=== PATIENT | male | born 1955 | race Caucasian/White ===

== ENCOUNTER → 2017-03-06 | Outpatient (CLI) | payer OTHER ==
[~2017-03-06] MED LIST: NO MEDICATIONS
== END | disposition home or self-care (01) ==
LOC: RAD 17:41
PROVIDERS: ATTEND Neurological Surgery
DX: Z01.818 Encounter for other preprocedural examination (principal); M51.26 Other intervertebral disc displacement, lumbar region; M48.04 Spinal stenosis, thoracic region
CPT/HCPCS: 71020; 93005

== ENCOUNTER 2017-03-08 05:24 | Day surgery (SDC) | payer OTHER ==
[~2017-03-08] VITALS: Ht 182.9 cm; Wt 77.0 kg
[2017-03-08 06:08] VITALS: BP 138/90
[2017-03-08] MEDS ORDERED: LACTATED RINGERS 1,000 ML IV SCH (06:09)
[2017-03-08] MEDS ORDERED: BACITRACIN 50,000 UNIT ONE (06:18)
[2017-03-08] MEDS ORDERED: THROMBIN 20,000 UNIT VIAL TP ONE (06:18)
[2017-03-08] MEDS ORDERED: THROMBIN 5,000 UNIT VIAL TP ONE (06:18)
[2017-03-08] MEDS ORDERED: BUPIVACAINE/PF-EPI 0.25% 1:200K ONE ×2 (06:18→07:35)
[2017-03-08] MEDS ORDERED: FENTANYL PF 250 MCG/5ML ONE (06:27)
[2017-03-08] MEDS ORDERED: MIDAZOLAM 1 MG/ML, 5ML ONE (06:27)
[2017-03-08] MEDS ORDERED: NO MEDICATIONS (06:44)
[2017-03-08] MEDS ORDERED: DEXAMETHASONE 4 MG/ML, 5ML ONE (06:57)
[2017-03-08] MEDS ORDERED: ROCURONIUM 10 MG/ML ONE (06:57)
[2017-03-08] MEDS ORDERED: PROPOFOL 10 MG/ML, 20ML ONE (06:57)
[2017-03-08] MEDS ORDERED: CEFAZOLIN 1,000 MG ONE (06:57)
[2017-03-08] MEDS ORDERED: ONDANSETRON 2MG/ML, 2ML ONE (06:57)
[2017-03-08] MEDS ORDERED: FENTANYL PF 100 MCG/2ML IV PRN (08:00)
[2017-03-08] MEDS ORDERED: LABETALOL 5MG/ML, 20ML IV PRN (08:00)
[2017-03-08] MEDS ORDERED: ACETAMINOPHEN 325 MG TABLET PO PRN (08:00)
[2017-03-08] MEDS ORDERED: MEPERIDINE/PF 25MG/0.5ML IVPush PRN (08:00)
[2017-03-08] MEDS ORDERED: ONDANSETRON 2MG/ML, 2ML IVPush PRN (08:00)
[2017-03-08] MEDS ORDERED: OXYcodone 5 MG/5 ML ORAL.SOL UDC PO PRN (08:00)
[2017-03-08] MEDS ORDERED: PROMETHAZINE 25 MG/ML, 1ML IV PRN (08:00)
[2017-03-08] MEDS ORDERED: HYDROmorphone 1 MG/ML, 1ML IV PRN (08:00)
== END 2017-03-08 11:45 | disposition home or self-care (01) ==
LOC: OUT 05:24
PROVIDERS: ATTEND Neurological Surgery
DX: M51.16 Intervertebral disc disorders with radiculopathy, lumbar region (principal); M48.06 Spinal stenosis, lumbar region; I44.7 Left bundle-branch block, unspecified; G43.909 Migraine, unspecified, not intractable, without status migrainosus; Z82.0 Family history of epilepsy and other diseases of the nervous system; Z72.89 Other problems related to lifestyle
CPT/HCPCS: 63030; 63056; 72100; J0690; J1100; J2250; J2405; J2704; J3010; J7120